=== PATIENT | female | born 1970 | race Asian ===

== ENCOUNTER → 2018-09-01 | Day surgery (SDC) | payer OTHER ==
--- NOTE | 2018-09-03 10:51 | PATH ---
Surgical Pathology Report Patient Name: KENNEY MAYBERRY [facility]. Rec. #: [id number] /Age/Gender: 1970 (Age: 48) / F Account: [id number] Location: [facility] Taken: 09/01/2018 Received: 09/01/2018 Reported: 09/03/2018 Physicians: Tawanna Mcguire M.D. Specimen(s) Received RIGHT BREAST 9-10:00 Clinical History Nonpalpable lesion Final Diagnosis RIGHT BREAST, 0.5 CM LESION, CORE BIOPSY: BREAST TISSUE WITH ATYPICAL DUCTAL HYPERPLASIA, DILATED DUCTS, STROMAL FIBROSIS, AND MICROCALCIFICATIONS. Electronically Signed Marshall Quan M.D. Gross Description Received in formalin labeled "0.5cm lesion right breast core biopsy " are multiple burns to yellow cylindrical portions of fibroadipose tissue, measuring aggregate 0.6 x 0.5 x 0.1 cm in aggregate. The specimen is entirely submitted in 1 cassette. Time from tissue taken to be placed in formalin: Less than one minute Total formalin fixation time: Between 10-11 hours. TEDDY/09/01/2018 nancy/09/01/2018
== END | disposition home or self-care (01) ==
LOC: JRADUS-SUR 08:47
PROVIDERS: ATTEND Specialist
PROC: 0HBT3ZX Excision of Right Breast, Percutaneous Approach, Diagnostic (ICD-10-PCS; principal; 2018-09-01)
DX: N60.31 Fibrosclerosis of right breast (principal); N60.91 Unspecified benign mammary dysplasia of right breast; N64.89 Other specified disorders of breast; N63.11 Unspecified lump in the right breast, upper outer quadrant
CPT/HCPCS: 19083; 77065-TC; 87899; 88305-TC; A4648

== ENCOUNTER 2018-09-26 10:04 | Day surgery (SDC) | payer OTHER ==
[2018-09-26 07:59] VITALS: BMI 32.7
[2018-09-26] MEDS ORDERED: ONDANSETRON 4 MG/2 ML VIAL IVPUSH PRN (12:09)
[2018-09-26] MEDS ORDERED: MIDAZOLAM HCL 2 MG/2 ML SINGLE DOSE VIAL ONE (12:11)
[2018-09-26] MEDS ORDERED: PROPOFOL 20 ML ONE (12:13)
[2018-09-26] MEDS ORDERED: LIDOCAINE HCL/PF 2% SDV 5ML VIAL ONE (12:13)
[2018-09-26] MEDS ORDERED: LACTATED RINGERS SOLUTION 1,000 ML IV SCH (12:15)
--- NOTE | 2018-09-26 12:17 | HP ---
History & Physical Update - History History: No Change (The target lesion , ADH in right breast, upper outer quadrant, is localised under radiographic control, deep withi the breast towards the axillary tail. Films reviewed.) - Physical Physical: No Change - Assessment Assessment: No Change - Plan Plan: No Change
[2018-09-26] MEDS ORDERED: DEXAMETHASONE SOD PHOSPHATE 4 MG/1 ML VIAL ONE (12:20)
[2018-09-26] MEDS ORDERED: KETOROLAC TROMETHAMINE 30 MG/1 ML VIAL ONE (12:20)
[2018-09-26] MEDS ORDERED: BUPIVACAINE HCL/PF 0.5% (5MG/ML) 10 ML VIAL ONE (12:52)
[2018-09-26] MEDS ORDERED: LIDOCAINE HCL 1%, 10 MG/ML (20ML VIAL) INF ONE ×2 (13:07)
[2018-09-26] MEDS ORDERED: BUPIVACAINE HCL/PF 0.5% (5MG/ML) 10 ML VIAL IJ ONE ×2 (13:07)
[2018-09-26] MEDS ORDERED: BENZOIN TINCTURE SWABSTICK TP ONE (13:27)
--- NOTE | 2018-09-26 13:49 | OP ---
Operative Note - Note: Operative Date: 09/26/18 Pre-Operative Diagnosis: Atypical ductal hyperplasia of right breast , upper outer quadrant. Operation: Needle localisation and wide excision of atypical dictal hyperplasia right breast. Findings: Lesion localised and target lesion and clip identified with adequate margins. Superior , medial and inferior margins identified with sutures. Ellipse of skin around the wire and needle excised. Breast tissue approximated with absorbable biosyn sutures. Post-Operative Diagnosis: Same as Pre-op Surgeon: Hebert Granados Anesthesia: General Specimens Removed: Breast tissue around the wire and clip, identified with wire. Estimated Blood Loss (mls): 20 Operative Report Dictated: Yes
[2018-09-26] MEDS ORDERED: ONDANSETRON 4 MG/2 ML VIAL ONE (14:40)
--- NOTE | 2018-09-26 16:07 | OP ---
DATE OF OPERATION: 09/26/2018 PREOPERATIVE DIAGNOSES: 1. Abnormal right mammogram. 2. Atypical ductal hyperplasia of the right breast. POSTOPERATIVE DIAGNOSES: 1. Abnormal right mammogram. 2. Atypical ductal hyperplasia of the right breast. 3. Presence of the target lesion within the specimen radiograph. OPERATIVE PROCEDURE: Partial mastectomy (lumpectomy) right breast after needle localize. SURGEON: Donna Granados MD ANESTHESIA: General anesthesia. OPERATIVE DESCRIPTION: This 48-year-old woman had a screening mammogram, which showed a 0.5-cm abnormal breast imaging deep within the right breast toward the upper outer quadrant. The patient had mammographic-directed biopsy of the lesion, which showed atypical ductal hyperplasia. The patient was, therefore, brought in for lumpectomy after needle localization. Consent was obtained. Risks, benefits, complications had been discussed with the patient. The target lesion was identified with the guidewire under radiographic control. The patient was then brought to the operating room. The right breast was painted and draped. The target lesion was identified through a needle, and wire placed through the right lateral edge of the breast. The lesion was deep within the breast against the chest wall between the right upper outer and lower outer quadrants. The patient had relatively large breasts. The patient was brought into the operating room. General anesthesia was administered. Breasts were painted and draped. As the lesion was deep in the relatively large breast, it was decided to follow the needle and wire down to the bottom of the lesion. Elliptical incision was made on the skin around the guidewire at the lateral edge of the right breast briefly in the lower outer quadrant of about 4 cm in length. The breast tissue was incised on either side along the direction of the needle and the wire. Once the incision was reached towards the tip, which was at about 4 cm in the skin, a generous amount of breast tissue around the tip was taken with the knife, and it was completely excised and sent to specimen radiography and then to pathology. The specimen was marked at its superior edge, medial deeper edge, the inferior edge with sutures, and the lateral edge of the elliptical skin. There was a generous amount of breast tissue around the target lesion. Specimen radiography confirmed the presence of the previously placed clip well within the lesion compared with margin. The specimen was then sent to Pathology. Hemostasis was achieved using electrocautery. The breast tissue was approximated with 2-0 Biosyn sutures. The subcutaneous tissue and the deep dermal tissue was approximated with buried interrupted 3-0 Biosyn sutures. The skin was then approximated with continuous subcuticular 4-0 Monocryl sutures in a running fashion. Estimated blood loss was about 20 mL. Sponge count and instrument count was correct. across the incision with benzoin placed across the skin edges. A dressing was applied. A surgical bra was placed. The patient tolerated the procedure well and was extubated and sent to the recovery room in satisfactory and stable condition. Tawanna VENTURA/[id number] cc: Elie Henry MD
[2018-09-26] MEDS ORDERED: ACETAMINOPHEN 325 MG TABLET (FP) PO PRN (17:07)
[2018-09-26 17:39] VITALS: BP 120/70; TEMP 97.8
[2018-09-26 18:57] VITALS: PULSE 72
--- NOTE | 2018-09-29 16:54 | PATH ---
Surgical Pathology Report Patient Name: KENNEY MAYBERRY [facility]. Rec. #: [id number] /Age/Gender: 1970 (Age: 48) / F Account: [id number] Location: [facility] SUR[facility]ICAL Taken: 09/26/2018 Received: 09/26/2018 Reported: 09/29/2018 Physicians: Donna Granados M.D. Specimen(s) Received RIGHT BREAST MASS Clinical History Right breast lesion Final Diagnosis BREAST, RIGHT, EXCISION: FOCAL ATYPICAL DUCTAL HYPERPLASIA AND SMALL RADIAL SCAR IN A BACKGROUND OF PROLIFERATIVE FIBROCYSTIC CHANGES INCLUDING STROMAL FIBROSIS, MICROCYSTS, APOCRINE METAPLASIA, COLUMNAR CELL CHANGES, USUAL DUCTAL HYPERPLASIA AND ASSOCIATED MICROCALCIFICATIONS. CHANGES OF PRIOR BIOPSY PRESENT. SKIN WITHOUT SIGNIFICANT PATHOLOGIC FINDINGS. Electronically Signed Bhavana Nation M.D. Gross Description Received fresh on an Accugrid, labeled with the patient's name and indicated on the requisition to be a right breast excision, is an 8.4 x 4.5 x 2.8 cm. burns-yellow, irregular, portion of fibroadipose tissue with a needle localization wire present. There is a needle localization wire and biopsy clip identified on the radiograph. There is a single suture marking the superior aspect, a double suture marking the medial-deep aspect, and a prolene suture marking the inferior aspect, per the surgeon. The anterior surface displays a 1.8 x 0.6 cm burns, elliptical portion of skin. The specimen is inked as follows: superior blue; inferior green; medial yellow; lateral red; deep black. The specimen is serially sectioned from skin to deep. Sectioning reveals minimal fibrous tissue. There is a castano metallic biopsy clip identified, associated with a previous biopsy site. No mass is identified. [employer] sections are submitted in 12 cassettes as follows: 1-6-fibrous tissue and biopsy site sequentially submitted from anterior to deep (each with lateral and superior margins; clip in cassette 5); 7-8-deep margin; 9-10-medial margin; 11-inferior margin; 12-skin. Total formalin fixation time: Approximately 6 hours. saudi/09/26/2018
== END 2018-09-26 18:59 | disposition home or self-care (01) ==
LOC: JASU-SURG 10:04
PROVIDERS: ATTEND Specialist
PROC: 0HBT0ZZ Excision of Right Breast, Open Approach (ICD-10-PCS; principal; 2018-09-26 12:00)
DX: N60.11 Diffuse cystic mastopathy of right breast (principal); N60.91 Unspecified benign mammary dysplasia of right breast
CPT/HCPCS: 19281; 84703; 88307-TC; 94760